=== PATIENT | male | born 1980 | race Caucasian/White ===

== ENCOUNTER 2021-02-22 12:57 | Emergency (ER) | payer MEDICAID ==
[~2021-02-22] VITALS: Ht 175.2 cm; Wt 91.2 kg
[~2021-02-22 12:57] MED LIST: AMOXICILLIN500 M2 PO; AMOXICILLIN500 MG PO; ANAPROX DS550 MG PO; BACTROBAN OINT22 GM PO; CHLORZOXAZONE500 M2 PO; CLEOCIN HCL150 MG PO; FLEXERIL10 MG PO; MEDROL DOSEPAK4 MG PO; MOTRIN800 MG PO; NAPROSYN500 MG PO; NO DAILY MEDS; PREDNISONE10 MG PO; TRAMADOL HCL50 MG PO; ULTRAM50 MG PO; VICODIN 5/500 505 MG PO; VICODIN 500 MG-1 TAB PO; VICODIN ES 7501 TAB PO
== END 2021-02-22 15:42 | disposition home or self-care (01) ==
LOC: ED 12:57
DX: S50.02XA Contusion of left elbow, initial encounter (principal); Z88.6 Allergy status to analgesic agent; W22.8XXA Striking against or struck by other objects, initial encounter; Y93.89 Activity, other specified; Y92.89 Other specified places as the place of occurrence of the external cause; Y99.8 Other external cause status

== ENCOUNTER 2021-03-09 10:12 | Emergency (ER) | payer MEDICAID ==
[~2021-03-09] VITALS: Ht 175.2 cm; Wt 91.6 kg
[2021-03-09 12:21] LABS: BILIRUBIN Negative (Negative); BLOOD Negative (Negative); CLARITY Clear (Clear); COLOR Yellow (Yellow); GLUCOSE Negative (Negative); KETONE Negative (Negative); LEUKO ESTERASE Negative (Negative); NITRITE Negative (Negative); SPECIFIC GRAVITY 1.025 (1.001-1.030)
[2021-03-09 12:27] LABS: BACTERIA TRACE; EPITHELIAL CELLS 0-2; RBC 0-2 rbc/hpf (0-2); WBC 0-2 wbc/hpf (0-5)
[2021-03-09] MEDS ORDERED: Motrin,Rufen800 MG PO (14:48)
[2021-03-09] MEDS ORDERED: MEDROL DOSEPAK4 MG PO ×2 (14:48→14:52)
[2021-03-09] MEDS ORDERED: CYCLOBENZAPRINE5 M3 PO (14:48)
== END 2021-03-09 14:57 | disposition home or self-care (01) ==
LOC: ED 10:12
PROVIDERS: Nurse Practitioner
DX: M54.41 Lumbago with sciatica, right side (principal); Z88.6 Allergy status to analgesic agent; Z79.2 Long term (current) use of antibiotics; Z79.899 Other long term (current) drug therapy; Z90.49 Acquired absence of other specified parts of digestive tract